=== PATIENT | female | born 1995 | race Two or more races ===

== ENCOUNTER 2019-03-12 04:27 | Emergency (ER) | payer OTHER ==
[~2019-03-12] VITALS: Ht 154.9 cm; Wt 67.5 kg
[2019-03-12] MEDS ORDERED: FAMOTIDINE 20 MG TABLET ONE ×2 (04:57→05:49)
[2019-03-12] MEDS ORDERED: ONDANSETRON ODT 4 MG ONE ×2 (04:57→05:49)
[2019-03-12] MEDS ORDERED: ONDANSETRON ODT 4 MG PO ONE (05:00)
[2019-03-12] MEDS ORDERED: FAMOTIDINE 20 MG TABLET PO ONE (05:00)
--- NOTE | 2019-03-12 05:05 | NUR ---
Patient into room with significant other, changed into gown and attached to monitor. Blood pressure, heart rate and pulsatile oxygen within normal limits. Midlevel provider to bedside to assess patient. Patient speaks in a low volume. Appears well nourished, clean and well kept. Patient reports having nausea for approximately 24 hours. But no vomiting until this past hour. Patient reports having been prescribed a new migraine medication previously. Significant other has it at bedside, provider able to evaluate. Patient reports no known exposure to a person with the same issues and can't recall being exposed to spoiled food. Orders placed by provider for medication, informed of po antinausea medication but significant other at bedside requesting intravenous medication. Patient agreeable to po medication at this time. Also relayed need to get a urine sample. Reviewed clean catch urine sample instructions. On return to bedside, patient reports being unable to give sample and urine cup completely dry. Sublingual zofran administred but patient vomited almost immediately after. Addendum: 03/12/19 at 0514 by GAURAV Phlebotomy to bedside. Awaiting lab results.
[2019-03-12] MEDS ORDERED: PROMETHAZINE 25 MG/ML, 1ML ONE (05:19)
[2019-03-12 05:27] LABS: MEAN CORPUSCULAR HEMOGLOBIN 25.6 pg (27.0-34.8); MEAN CORPUSCULAR VOLUME 79.9 fL (80-100); MEAN PLATELET VOLUME 9.8 fL (7.4-10.4); PLATELET COUNT 304 x10^3/uL (130-400); RED BLOOD COUNT 5.68 x10^6/uL (3.82-5.3); RED CELL DISTRIBUTION WIDTH 13.9 % (9.6-15.2)
[2019-03-12] MEDS ORDERED: PROMETHAZINE 25 MG/ML, 1ML IM ONE (05:30)
[2019-03-12 05:35] LABS: ALBUMIN 4.3 g/dL (3.4-5.0); ANION GAP 12 mmol/L (5-15); CHLORIDE 108 mmol/L (98-107); CREATININE 1.09 mg/dL (0.55-1.02)
--- NOTE | 2019-03-12 05:39 | NUR ---
Patient given antinausea medication im due to inability to tolerate oral and sublingual medications. Patient then took a second trip to bathroom for diarrhea. Patient returned, patient only able to give one drop of urine in sample cup. Patient educated RN would return. Patient stopped RN and pressed RN for something to aid her ability to sleep. Patient educated on emergency room procedures to treat medical conditions. Patient not presenting with chronic insomnia, just having difficulty sleeping at this moment. patient keeps pressing rn to administer an unknown medication given at an unknown time in the patients history from an unknown doctor. RN unable to get patient to verbalize understanding.
[2019-03-12 05:51] LABS: MD YES
[2019-03-12 05:53] LABS: <PLATELET ESTIMATE> ADEQUATE; <PLT MORPHOLOGY> NORMAL PLT MORPH; BAND#(MANUAL) 0.56 x10^3/uL; BANDS%(MANUAL) 3 % (0-7); LYMPH#(MANUAL) 0.19 x10^3/uL (1-3.4); LYMPHS% (MANUAL) 1 % (22-44); MICROCYTOSIS 1+; MONOS#(MANUAL) 0.56 x10^3/uL (0.3-2.7); MONOS% (MANUAL) 3 % (2-9); SEG#(MANUAL) 17.39 x10^3/uL (1.8-6.8); SEGS% (MANUAL) 93 % (42-75)
--- NOTE | 2019-03-12 06:07 | NUR ---
Patient feeling better and a bit lethargic after im medication administration. Then followed up and readminstered medications vomited up from patients mouth in first attempt to administer po medications. Patient now sleeping with significant other at bedside. Will start IV per new order and administer iv fluids per order to see if patient able to urinate.
[2019-03-12] MEDS ORDERED: SODIUM CHLORIDE 0.9% 1,000ML IVBOLUS ONE (06:30)
--- NOTE | 2019-03-12 06:55 | NUR ---
Gave report to oncoming nurse, covered interventions perfromed and plan of care.
--- NOTE | 2019-03-12 07:21 | NUR ---
REPORT TAKEN FROM LALI DIAZ. PT RESTING ON [employer]UDAR[employer]. STATES SHE DOES NOT YET NEED TO URINATE- WILL INFORM THIS RN WHEN SHE DOES. THIS RN OFFERED TO HELP BY FRANCINE LAST'ING PT. PT REFUSED AT THIS TIME. VSS. YURYN. DENIES NEEDS.
[2019-03-12] MEDS ORDERED: [UNRECOGNIZED DRUG - OTHER] (07:23)
[2019-03-12] MEDS ORDERED: SPIR100T4 PO (07:23)
[2019-03-12 07:24] VITALS: BP 93/59
--- NOTE | 2019-03-12 07:27 | NUR ---
PT AMBULATORY WITH STEADY GAIT TO BATHROOM TO PROVIDE URINE SAMPLE NOW.
--- NOTE | 2019-03-12 07:46 | NUR ---
UA COLLECTED. PT RESTING ON [employer]. YURYN. CONNECTED TO MONITOR.
[2019-03-12 07:54] LABS: CULTURE INDICATED? YES; MICROSCOPIC INDICATED
== END 2019-03-12 08:50 | disposition home or self-care (01) ==
LOC: ED 06:53
DX: K52.9 Noninfective gastroenteritis and colitis, unspecified (principal); N28.9 Disorder of kidney and ureter, unspecified; G43.909 Migraine, unspecified, not intractable, without status migrainosus
CPT/HCPCS: 36415; 80048; 81001; 82040; 84703; 85025; 87086; 96360; 96361; 96372; 99283; J2550; J7030; Q0162